=== PATIENT | male | born 1955 | race Caucasian/White ===

== ENCOUNTER 2018-12-15 08:59 | Outpatient (CLI) | payer BC ==
--- NOTE | 2018-12-15 12:58 | CT ---
CT OF CHEST AND ABDOMEN AND PELVIS PERFORMED WITH INTRAVENOUS CONTRAST ENHANCEMENT: HISTORY: Prostate cancer. Rising PSA after radical prostatectomy. Restaging. COMPARISON: Examination done at [facility] dated 08/22/2014 which is the most recent exam available for comparison. The previous examination was of the abdomen and pelvis. No previous chest CT. FINDINGS: There is an approximately 6 mm left upper lobe pulmonary nodule and a 2nd left upper lobe nodule vince uring 4 mm. A third nodule is seen in the right upper lobe measuring 5 mm. A larger nodule was seen on axial image 31 within the right upper lobe abutting the major fissure. It measures 7-8 mm in siz e. On axial 41, there is a left lower lobe pulmonary nodule measuring 4 mm and on axial image 23 wit hin the superior segment of the right lower lobe is a 7 mm nodule. There is no significant mediastinal, hilar, or axillary lymphadenopathy noted. Coronary artery calci fications are seen. The liver shows no focal abnormalities. The spleen and pancreas regions are unremarkable. The gallb ladder has been removed. Right and left adrenal glands are normal in size. Bilateral nonobstructing renal calculi are noted. There is no significant periaortic or mesenteric adenopathy. CT OF PELVIS PERFORMED WITH CONTRAST ENHANCEMENT: Post prostatectomy changes are seen. I do not appreciate any significant pelvic lymphadenopathy or m ass. Review of osseous structures shows arthritic changes of the spine. No lytic or blastic bony changes. IMPRESSION: 1. Bilateral pulmonary nodules. Given the rising PSA, this would be concerning for metastatic disea se . None of these appear calcified. 2. No evidence of any pelvic lymphadenopathy or mass. Postoperative prostatectomy changes are prese nt. 3. Bilateral nonobstructing renal calculi. 4. Postcholecystectomy change. POS: OFF
--- NOTE | 2018-12-15 14:26 | NM ---
WHOLE BODY BONE SCAN: HISTORY: Malignant neoplasm of prostate, rising PSA RADIOPHARMACEUTICAL: 32 mCi technetium 99m-MDP injected intravenously COMPARISON: None CORRELATION: CT chest, abdomen and pelvis dated 12/15/2018 FINDINGS: There is scattered degenerative activity in the appendicular skeleton. No other abnormal areas of tracer localization are seen in the skeleton to suggest metastatic disease . Tracer excretion through the kidneys is within normal limits. IMPRESSION: No scintigraphic evidence of osseous metastatic disease.
[2018-12-15] MEDS ORDERED: Iopamidol 370 76% 100 ML VIAL ONE (16:27)
== END 2018-12-15 09:00 | disposition home or self-care (01) ==
LOC: CT 08:59
PROVIDERS: ATTEND Radiology Radiation Oncology
DX: C61 Malignant neoplasm of prostate (principal); R91.8 Other nonspecific abnormal finding of lung field; N20.0 Calculus of kidney; Z90.49 Acquired absence of other specified parts of digestive tract
CPT/HCPCS: 71260; 74177; 78306; 82565; A9503; Q9967

== ENCOUNTER 2019-04-17 07:34 | Outpatient (CLI) | payer BC, OTHER ==
--- NOTE | 2019-04-17 10:15 | CT ---
CT CHEST WITH INTRAVENOUS CONTRAST: HISTORY: Followup of pulmonary nodules. COMPARISON: 12/15/2018 FINDINGS: A 3 to 4 mm left upper lobe pulmonary nodule, axial image 13, is stable. A right upper lobe pulmonary nodule, axial image 20, is not as well defined as on the prior examination and has more haziness teresa rounding the nodule but the nodule itself is actually slightly smaller in appearance, difficult to me asure. The perinodular changes are more prominent. The superior segment left lower lobe pulmonary nodule is also a less well defined nodule on today's s tudy. On the axial images a true nodule is very difficult to visualize. It does appear overall decrea sed in size and probably measures in the 4 mm range, as compared to 7 mm on the prior exam. An approx imately 7 mm nodule in the right mid lung field is fairly stable in size but, once again, it is not a s circumscribed a nodule. The borders are slightly more ill defined than on the prior study. There ar e no new nodules identified. A left sided pulmonary nodule seen on axial image 28 is the only nodule that shows some questionable minimal increase in size, measuring in the 6 mm range in short axis dime nsion as compared to 5 mm on the prior study. It is also slightly more prominent in appearance as see n on the coronal imaging. This actually could represent an intrafissural node. No significant mediastinal or hilar adenopathy. There are some coronary calcifications. The liver shows fatty change. The gallbladder has been removed. IMPRESSION: 1. Persistent pulmonary nodules. Some of these nodules are less well defined. The margins are not as circumscribed as on the prior study, specifically some of the right sided nodules. This may indicate some type of response to treatment. I do not see any new nodules. The only questionable nodule that m ay have increased in size is a left sided nodule, which is probably an intrafissural node along the m ajor fissure. 2. Fatty change of the liver. POS: TPC
== END 2019-04-17 07:35 | disposition home or self-care (01) ==
LOC: SCSCT 07:34
PROVIDERS: ATTEND Internal Medicine Hematology & Oncology
DX: C61 Malignant neoplasm of prostate (principal); R91.1 Solitary pulmonary nodule; R91.8 Other nonspecific abnormal finding of lung field; K76.0 Fatty (change of) liver, not elsewhere classified
CPT/HCPCS: 71260; 82565

== ENCOUNTER 2019-07-19 18:00 | Outpatient (CLI) | payer BC, OTHER | END 2019-07-19 18:01 | disposition home or self-care (01) | LOC: SLEEPLAB 18:00 | PROVIDERS: ATTEND Internal Medicine | DX: G47.33 Obstructive sleep apnea (adult) (pediatric) (principal); I10 Essential (primary) hypertension; E11.9 Type 2 diabetes mellitus without complications; R06.83 Snoring | CPT/HCPCS: 95806 ==

== ENCOUNTER 2019-08-31 19:30 | Outpatient (CLI) | payer BC, OTHER | END 2019-08-31 19:31 | disposition home or self-care (01) | LOC: SLEEPLAB 19:30 | PROVIDERS: ATTEND Internal Medicine | DX: G47.33 Obstructive sleep apnea (adult) (pediatric) (principal); R06.83 Snoring; I10 Essential (primary) hypertension; E11.9 Type 2 diabetes mellitus without complications | CPT/HCPCS: 95811 ==

== ENCOUNTER 2019-10-10 10:05 | Outpatient (CLI) | payer BC, OTHER ==
--- NOTE | 2019-10-10 14:26 | CT ---
CT THORAX WITH CONTRAST: DATE: 10/10/2019 HISTORY: 64-year-old male follow-up pulmonary nodules COMPARISON: 12/15/2018 and 04/17/2019 FINDINGS: Tiny 3 mm noncalcified pulmonary nodule at anterolateral apical segment of left upper lobe, abutting anterior pleural surface, is essentially unchanged (axial image 12 of 65, series 3; coronal image 87 of 160 series 602; sagittal image 137 of 198 series 603). The previously described 7 mm nodule in the "right midlung field" located at the lateral posterior as pect of the right middle lobe, just superior to the major fissure, has decreased in size, currently measuring 4 mm (axial image 32 of 65, series 3; coronal image 74 of 160 series 602; sagittal image 43 of 198 series 603). An array of noncalcified tiny nodular densities near the right lateral costophrenic angle, very close to the right hemidiaphragm, at anterolateral base of right lower lobe, is unchanged, and probably represents scar tissue or old granulomatous disease (axial images 38 and 39 of 65 series 3; coronal i mages 64 through 70 of 160 series 602; sagittal images 43 through 45 of 198 series 603). A well-circumscribed round 5 mm pulmonary nodule at the lateral aspect of right upper lobe on 12/16/19 19, became more ill-defined on 04/17/2019, and is currently no longer visible. Again noted is the benign intrapulmonary lymph node along the left major fissure at left mid lung zon e (axial image 27 of 65 series 3; coronal image 103 of 160 series 602; sagittal image 147 of 198 series 603) is unchanged. No mediastinal or hilar lymphadenopathy. No thoracic aortic aneurysm. Atherosclerotic calcification of LAD. No cardiomegaly or pericardial effusion. No pleural effusion or pneumothorax. Trachea and major bronchi are patent and clear. Again noted is bilateral breast tissue. Several tiny calculi at bilateral renal upper poles. IMPRESSION: 1) some of the pulmonary nodules have decreased in size or resolved. 2) the others are unchanged. 3) bilateral gynecomastia 4) coronary atherosclerosis due to calcified coronary lesion. 5) bilateral nephrolithiasis
== END 2019-10-10 10:06 | disposition home or self-care (01) ==
LOC: SCSCT 10:05
PROVIDERS: ATTEND Internal Medicine Hematology & Oncology
DX: C61 Malignant neoplasm of prostate (principal); R91.1 Solitary pulmonary nodule; N62 Hypertrophy of breast; I25.10 Atherosclerotic heart disease of native coronary artery without angina pectoris; N20.0 Calculus of kidney
CPT/HCPCS: 71260; 82565

== ENCOUNTER 2019-12-27 10:09 | Outpatient (CLI) | payer BC, OTHER ==
--- NOTE | 2019-12-27 11:00 | ULT ---
Renal ultrasound: 12/27/2019 COMPARISON: None available HISTORY: Proteinuria TECHNIQUE: Multiplanar grayscale sonographic imaging of the kidneys and urinary bladder obtained. FINDINGS: The right kidney measures 11.3 x 5.7 x 5.2 cm and demonstrates no hydronephrosis, discrete stone, or mass lesion. The left kidney measures 11.8 x 6.2 x 6.0 cm. Multiple echogenic foci are noted within the left kidne y suggesting numerous left renal calculi, measuring up to approximately 1.0 cm. There is hydronephrosis on the left which is mild/moderate in severity, and is seen on prevoid and postvoid im aging. The urinary bladder prevoid volume is approximately 21 cc and postvoid urinary bladder volume is approximately 2 cc. Linear increased echogenicity is seen within the urinary bladder which may be explained by "device in bladder to aid in control" per the performing collections attorney. IMPRESSION: Hydronephrosis within the left kidney on pre and post void imaging. Left-sided renal ston e disease. CT urogram would be beneficial for full assessment.
== END 2019-12-27 10:10 | disposition home or self-care (01) ==
LOC: SCSULT 10:09
PROVIDERS: ATTEND Internal Medicine
DX: N28.9 Disorder of kidney and ureter, unspecified (principal); R80.9 Proteinuria, unspecified; N13.30 Unspecified hydronephrosis; N20.0 Calculus of kidney
CPT/HCPCS: 76770

== ENCOUNTER 2020-01-02 13:32 | Outpatient (CLI) | payer BC, OTHER ==
--- NOTE | 2020-01-02 15:52 | CT ---
CT Stone Protocol 01/02/2020 12:00 AM HISTORY: Renal calculi and hydronephrosis. Left hydronephrosis was seen on a recent renal sonogram on 0 COMPARISON: CT abdomen and pelvis on 12/15/2018 and renal ultrasound on 12/27/2019 Technique: Multiple contiguous axial CT images are obtained through the abdomen and pelvis without IV contrast. Coronal reformats are provided. FINDINGS: This examination is limited for the evaluation of solid organs and vascular structures due to the lac k of intravenous contrast. Lower Chest: Stable slightly irregular pulmonary nodules are again seen at the lateral aspect right l ower lobe. Left lung base is clear Abdomen: Liver: Grossly normal non-enhanced CT appearance. Gallbladder: Surgically absent. Pancreas: Grossly normal nonenhanced CT appearance. Spleen: Grossly normal nonenhanced CT appearance. Adrenals: Grossly normal nonenhanced CT appearance. Kidneys: Nonobstructing bilateral renal calculi are present. Moderate left hydronephrosis is seen. Ureters: Moderate left hydroureter is present with a calculus seen at the left UVJ measuring 4 mm.. Pelvis: Urinary bladder: Partially distended. There is eccentric thickening right lateral wall of the urinary bladder with suggestion of irregular soft tissue density in the right lateral aspect of urinary bladder with associated calcification. In the expected location of the prostate gland which is been s urgically removed, there is exuberant eccentric circumferential calcification which does extend into the base of the urinary bladder. Prior study in 2019 demonstrated hypodense fluid in this region with minimal circumferential calcifications. Findings may be secondary to prior postoperative changes. There is a prosthetic urethral sphincter at the base of the penis. Lymph Nodes: No enlarged lymph nodes. Bowel: Normal caliber. Appendix: The appendix is normal in caliber. Peritoneum/Retroperitoneum: No free fluid, fluid collection, or lymphadenopathy seen in the abdomen o r pelvis. There is stable mild linear stranding seen in a presacral location which may be related to mild scarring. Vessels: Vascular calcifications are again seen in the abdominal aorta and iliac arteries.. Abdominal Wall: Small fat-containing umbilical hernia is present. Bones: Degenerative changes are seen in the spine. No suspicious lytic or sclerotic osseous lesions a re identified. IMPRESSION: 1. Partially obstructing left UVJ calculus measuring 4 mm with resultant moderate left hydronephrosis and hydroureter. 2. Nonobstructing bilateral renal calculi. 3. Evidence of prior prostatectomy. In the region of the prostate bed and extending to the base of th e penis are exuberant circumferential calcifications which appear to extend into the base of the urinary bladder. Findings may be secondary to postoperative changes. 4. Eccentric thickening of the right lateral wall of the urinary bladder with subtle low-attenuation area in the right aspect of the urinary bladder with associated calcification. Neoplastic process in this region cannot be excluded. Direct visualization is recommended. 5. Stable slightly irregular pulmonary nodules right lateral lung base
== END 2020-01-02 13:33 | disposition home or self-care (01) ==
LOC: SCSCT 13:32
PROVIDERS: ATTEND Urology
DX: N13.2 Hydronephrosis with renal and ureteral calculous obstruction (principal); N13.4 Hydroureter; N32.89 Other specified disorders of bladder; R91.8 Other nonspecific abnormal finding of lung field; Z90.79 Acquired absence of other genital organ(s)
CPT/HCPCS: 74176

== ENCOUNTER 2020-01-18 07:44 | Day surgery (SDC) | payer BC, OTHER ==
[2020-01-17 10:08] VITALS: BMI 33.2
[2020-01-18] MEDS ORDERED: Levofloxacin 500 mg/D5W 100 ml Premix Bag ONE (08:26)
[2020-01-18] MEDS ORDERED: Iothalamate Meglumine 60% 50 ML VIAL FS ONE (10:13)
[2020-01-18] MEDS ORDERED: PROPOFOL 200 MG/20 ML VIAL ONE (11:37)
[2020-01-18] MEDS ORDERED: Meperidine HCl/PF 25 MG/ML VIAL ONE (12:59)
--- NOTE | 2020-01-18 13:01 | RAD ---
EXAM: XR IVP Retrograde PROVIDED CLINICAL HISTORY: Ureteral stent placement. Bilateral renal calculi and left hydronephrosis. COMPARISON: None FINDINGS/IMPRESSION: Only a single AP fluoroscopic image of the abdomen is submitted. There is faint opacification of the urinary bladder. Renal shadows are not well visualized and are partially obscured on this exam. Correlation with intraoperative findings is recommended.
[2020-01-18] MEDS ORDERED: Oxybutynin 5 MG TAB ONE (13:13)
[2020-01-18] MEDS ORDERED: Ketorolac Tromethamine 30 MG/ML VIAL ONE (13:13)
--- NOTE | 2020-01-18 13:43 | OP ---
DATE OF PROCEDURE: 01/18/2020 PREOPERATIVE DIAGNOSES: Left ureteral stone, bladder stones. POSTOPERATIVE DIAGNOSES: Left ureteral stone, bladder stones, left ureteral stricture. PROCEDURES PERFORMED: Cystoscopy with laser cystolitholapaxy of large bladder stones. COMPLICATIONS: Unable to identify the left ureteral orifice as it appears to be involved with inflammatory/dystrophic calcification changes of the bladder neck. ANESTHESIA: General. SPECIMEN: None. BLOOD LOSS: Minimal. DESCRIPTION OF PROCEDURE: After informed consent, the patient was taken to the operating room, transferred to the table on his own power. Anesthesia was established. Time-out was performed showing correct patient, site, and procedure. Preoperative antibiotics were administered. He was prepped and draped in the lithotomy position. I began by locking his artificial sphincter in the open position. A 17-Khmer rigid cystoscope was advanced through the urethra noting no evidence of erosion of the sphincter and then guided into the bladder neck, which is lined circumferentially with dystrophic calcifications. I was able to negotiate into the bladder, which was systematically examined noting no bladder tumors. He does have changes consistent with radiation therapy. I used the 365 micron laser fiber to trim away all the stone from the bladder neck. This took about 45 minutes total time. All of these were irrigated out of the bladder, which was then free of stone. He does still have dystrophic calcifications lining the disrupted bladder neck and the true bladder neck of the bladder. This tissue is inflamed. I was able to identify the right ureteral orifice and passed a wire in this to confirm that it was indeed the right side. Despite numerous attempts using different techniques, I was unable to identify the left ureteral orifice, noting that where it should be located is covered with inflammatory tissue with dystrophic calcifications. I do not think that it would be reyes to insert a large resectoscope to resect over the UO given his artificial sphincter and so I eventually abandoned that portion of the procedure. He was awoken from anesthesia and transferred back to his hospital bed and taken to PACU in stable condition. I spoke with his afterwards and explained that he will need a left nephrostomy tube next week with antegrade ureteroscopy in the following week. Job ID: [id number]
[2020-01-18] MEDS ORDERED: HYDROcodone/Acetaminophen 5/325 mg Tablet ONE (14:11)
[2020-01-18] MEDS ORDERED: Sodium Chloride 0.9% 10 ML ONE (14:47)
[2020-01-18] MEDS ORDERED: Ondansetron PF 4 MG/2 ML Vial ONE (14:47)
== END 2020-01-18 16:25 | disposition home or self-care (01) ==
LOC: SDC 07:44
PROVIDERS: ATTEND Urology
PROC: 0TCB8ZZ Extirpation of Matter from Bladder, Via Natural or Artificial Opening Endoscopic (ICD-10-PCS; principal; 2020-01-18)
DX: N21.0 Calculus in bladder (principal); N20.1 Calculus of ureter; E11.9 Type 2 diabetes mellitus without complications; E78.5 Hyperlipidemia, unspecified; E78.00 Pure hypercholesterolemia, unspecified; I10 Essential (primary) hypertension; D64.9 Anemia, unspecified; G47.30 Sleep apnea, unspecified; N28.9 Disorder of kidney and ureter, unspecified; Z79.899 Other long term (current) drug therapy; Z88.0 Allergy status to penicillin; Z88.2 Allergy status to sulfonamides; Z88.5 Allergy status to narcotic agent; Z85.46 Personal history of malignant neoplasm of prostate; Z79.4 Long term (current) use of insulin
CPT/HCPCS: 74420; J1885; J1956; J2175; J2405

== ENCOUNTER 2020-01-19 14:35 | Inpatient (IN) | payer BC, OTHER, MEDICARE ==
[2020-01-19 16:24] LABS: Hemoglobin 9.3 g/dL (14.0-18.0); Mean Corpuscular HGB CONC 34.4 g/dL (32.0-36.0); Mean Corpuscular Hemoglobin 34.8 pg (27.0-31.0); Platelet Count 144 thou/uL (130-400); RBC Distribution Width 14.2 % (11.5-14.5); Red Blood Cell (RBC) Count 2.67 mill/uL (4.70-6.10); White Blood Cell (WBC) Count 8.1 thou/uL (4.8-10.8)
[2020-01-19 16:28] LABS: Bilirubin Negative (Negative); Blood, Urine 3+ (Negative); Clarity Turbid (Clear); Glucose, Urine (Dipstick) Normal (Negative); Ketone, Urine Negative (Negative); Leukocyte 500 Leu/uL (Negative); Nitrite Negative (Negative); Protein, Urine (Dipstick) 200 mg/dL (Neg-Trace); RBC/HPF Greater than 50 HPF (0-3); Specific Gravity, Urine 1.021 (1.002-1.036); Squamous Epithelial 0-3 HPF (0-3); WBC/HPF Greater than 50 HPF (0-3); pH, Urine 7.5 (5.0-9.0)
[2020-01-19 16:32] LABS: Bacteria/HPF Rare-Few HPF (None Seen); Transitional Epithelial 0-3 HPF (None Seen)
[2020-01-19 16:42] LABS: ALT (SGPT) 47 U/L (8-55); AST (SGOT) 60 U/L (5-34); Albumin 3.5 g/dL (3.4-4.8); Alkaline Phosphatase 80 U/L (40-110); Anion Gap 16 mmol/L (10-20); BUN (Urea Nitrogen) 31 mg/dL (8.4-25.7); Bilirubin, Total 0.9 mg/dL (0.2-1.2); Calc. Creatinine Clearance 0 mL/min (70-130); Calcium 8.7 mg/dL (7.8-10.44); Carbon Dioxide 22 mmol/L (23-31); Chloride 103 mmol/L (98-107); Estimated GFR-MDRD 25; Globulin 2.6 g/dL (2.4-3.5); Glucose 116 mg/dL (80-115); Potassium 4.3 mmol/L (3.5-5.1); Protein, Total 6.1 g/dL (5.8-8.1); Sodium 137 mmol/L (136-145)
[2020-01-19 16:46] LABS: Band 26 % (5-11); Eosinophils 1 % (0-10); Lymphocytes 2 % (21-51); MDiff Complete? YES; Macrocytosis SLIGHT = 6-15 cells (100X) (0-5/hpf); Metamyelocyte 2 % (0-0); Neutrophil 69 % (42-75); Ovalocytes SLIGHT = 2-5 cells (100X) (0-1/hpf); Platelet Morphology Comment Appears Adequate; Polychromasia SLIGHT = 2-3 cells (100X) (0-2/hpf); Vacuoles SLIGHT
--- NOTE | 2020-01-19 16:46 | CT ---
CT Abdomen Pelvis WO Con 01/19/2020 4:22 PM HISTORY: Follow-up evaluation postprocedure. COMPARISON: 01/15/2020 Technique: Multiple contiguous axial CT images are obtained through the abdomen and pelvis without IV contrast. Coronal reformats are provided. FINDINGS: This examination is limited for the evaluation of solid organs and vascular structures due to the lac k of intravenous contrast. Lower Chest: Slightly irregular subcentimeter pulmonary nodules are again seen in the right lung base . Left lung base clear. Abdomen: Liver: Grossly normal non-enhanced CT appearance. Gallbladder: Surgically absent. Pancreas: Grossly normal nonenhanced CT appearance. Spleen: Grossly normal nonenhanced CT appearance. Adrenals: Grossly normal nonenhanced CT appearance. Kidneys/ureters: Nonobstructing bilateral renal calculi are again seen. Again noted is left hydroneph rosis and hydroureter with a partially obstructing 4 mm calculus at the left UVJ. There has been interval development of right perinephric and periureteral inflammatory stranding. There is no right hydroureter or hydronephrosis, and no ureteral calculus is visualized. Exact etiology for this finding is uncertain. Findings could be related to infection in the correct clinical scenario. Pelvis: Urinary bladder: Urinary bladder is decompressed on this examination. Gas is present in the urinary b ladder which is likely related to recent postoperative procedure and cystoscopy. The dystrophic ringlike calcifications seen at the base of the urinary bladder and in the region of the prostate bed are again seen. The urethral sphincter prosthesis is again seen. Reproductive Organs: No pelvic masses. Lymph Nodes: No enlarged lymph nodes. Bowel: Normal caliber. Appendix: The appendix is normal in caliber. Peritoneum/Retroperitoneum: Again noted is mild stranding in presacral location which may related to mild scarring. No free fluid, free intraperitoneal gas, or fluid collection is seen in the abdomen or pelvis. Vessels: Vascular calcifications.. Abdominal Wall: Small fat-containing umbilical hernia. Bones: Degenerative changes in the spine. IMPRESSION: 1. Interval development of right perinephric and periureteral inflammatory stranding of uncertain vianey ology. However, findings may be related to ascending infection or possibly secondary to recent procedure. There is no hydronephrosis, and no ureteral calculus is seen. 2. Persistent partially obstructing left UVJ calculus measuring 4 mm. Mild left hydronephrosis is pre sent. 3. Nonobstructing bilateral renal calculi. 4. Additional findings as above which are stable compared to prior study aside from interval developm ent of gas in urinary bladder which is thought to be related to recent procedure. 5. Above findings discussed with Dr. Sheffield in the emergency department on 01/19/2020 at 1641 hour s.
[2020-01-19] MEDS ORDERED: Vancomycin 1 GM/200 ML BAG ONE (17:52)
[2020-01-19] MEDS ORDERED: Cefepime 2 GM VIAL ONE (17:52)
[2020-01-19] MEDS ORDERED: HYDROcodone/Acetaminophen 10/325 mg Tablet ONE (18:22)
[2020-01-19] MEDS ORDERED: Sodium Chloride 0.9% 1,000 ML IV SCH (20:00)
[2020-01-19] MEDS ORDERED: hydrALAZINE 20 MG/ML VIAL SLOW IVP PRN (20:11)
[2020-01-19] MEDS ORDERED: Acetaminophen 500 MG TAB PO PRN (20:11)
[2020-01-19] MEDS ORDERED: Dextrose 5% in Water 1,000 ML IV PRN (20:11)
[2020-01-19] MEDS ORDERED: Ketorolac Tromethamine 30 MG/ML VIAL IVP PRN (20:11)
[2020-01-19] MEDS ORDERED: Dextrose 50% Abboject 50 ML SYRINGE SLOW IVP PRN (20:11)
[2020-01-19] MEDS ORDERED: Ondansetron ODT 4 MG TAB PO PRN (20:11)
[2020-01-19] MEDS ORDERED: HumaLOG 300 UNITS/3 ML VIAL SC PRN ×2 (20:11)
[2020-01-19] MEDS: Sodium Chloride 0.9% 1,000 ML IV SCH (21:15)
[2020-01-19] MEDS: Famotidine 20 MG TAB PO SCH (21:15)
[2020-01-19 22:33] VITALS: BMI 33.2
--- NOTE | 2020-01-20 00:39 | HP ---
PRIMARY CARE PROVIDER: Dr. Forest Osborne. CHIEF COMPLAINT: Right flank pain and chills. HISTORY OF PRESENT ILLNESS: This is a 65-year-old male, who presented to [facility] Emergency Department complaining of right-sided flank pain, chills, general malaise, and decreased urine output in the last 24 hours. The patient's history is significant for recent laser lithotripsy attempt on the left ureter due to a distal left UPJ stone. The patient states there was difficulty removing the stone with laser technique due to swelling, inflammatory changes, and obstruction. The patient states that the right side was not cannulated to his knowledge. The patient states he had chills postoperatively and felt febrile, but eventually was released home late 01/18/2020. The patient denied any nausea or vomiting, blood in his urine or stool. The patient denied loss of consciousness, unilateral weakness, or documented fever. In the emergency room, the patient underwent general evaluation including CT imaging of the abdomen and pelvis showing evidence of inflammatory changes of the right ureter and perinephric stranding. The patient was diagnosed with pyelonephritis, receiving vancomycin and cefepime. The patient also received 1 L of intravenous normal saline. PAST MEDICAL HISTORY: 1. Ureteral/renal lithiasis, status post laser lithotripsy attempt of the left ureter, 01/18/2020. 2. Diabetes mellitus type 2. 3. Prostate carcinoma. 4. Hyperlipidemia. 5. Hypertension. PAST SURGICAL HISTORY: 1. Status post artificial sphincter placement of the urethra. 2. Status post prostatectomy. CURRENT MEDICATIONS: 1. Ropinirole 0.25 mg 1 to 2 tabs p.o. daily p.r.n. 2. Trulicity 1.5 mg intramuscularly weekly. 3. Potassium chloride 10 mEq 1 tab p.o. daily. 4. Losartan 50 mg p.o. daily. 5. Oxybutynin chloride 10 mg p.o. daily. 6. Fluconazole 150 mg p.o. t.i.d. 7. Crestor 20 mg p.o. daily. 8. Bisoprolol fumarate 10 mg p.o. daily. 9. Aspirin 81 mg p.o. daily. 10. Amlodipine 20 mg p.o. daily. ALLERGIES: DILAUDID, PENICILLIN, SULFA, AND TRAMADOL. FAMILY HISTORY: No inheritable diseases per patient report. SOCIAL HISTORY: , accompanied by his in the emergency room. No current alcohol, tobacco, or illicit drug use. Retired. REVIEW OF SYSTEMS: CONSTITUTIONAL: Negative for weight loss or gain, ability to conduct usual activities. SKIN: Negative for rash, itching. EYES: Negative for double vision, pain. ENT/MOUTH: Negative for nose bleeding, neck stiffness, pain, tenderness. CARDIOVASCULAR: Negative for palpitations, dyspnea on exertion, orthopnea. RESPIRATORY: Negative for shortness of breath, wheezing, cough, hemoptysis, fever or night sweats. GASTROINTESTINAL: Negative for poor appetite, abdominal pain, heartburn, nausea, vomiting, constipation, or diarrhea. GENITOURINARY: Negative for urgency, frequency, dysuria, nocturia. MUSCULOSKELETAL: Negative for pain, swelling. NEUROLOGIC/PSYCHIATRIC: Negative for anxiety, depression. ALLERGY/IMMUNOLOGIC: Negative for skin rash, bleeding tendency. Otherwise, negative except as stated per HPI. PHYSICAL EXAMINATION: VITAL SIGNS: On admission, blood pressure 140/59, pulse 92, respiratory rate 19, temperature 99.2 degrees Fahrenheit, O2 saturation 98% on room air. GENERAL APPEARANCE: This is a 65-year-old male, alert and oriented x3, pleasant, responsive, in no acute distress. HEENT: Pupils are equal, round, reactive to light and accommodation. Extraocular muscles are intact. No scleral icterus. No conjunctival injection. Nares patent. OP is clear. Oral mucosa dry. NECK: Supple. No cervical adenopathy. No thyromegaly. No carotid bruits. No JVD appreciated. Cervical spine with full active and passive range of motion. No meningeal signs noted. CHEST: Lungs are clear to auscultation bilaterally. CARDIOVASCULAR: S1 and S2 without noted murmur, rub, or gallop. ABDOMEN: Protuberant, obese, nontender with bowel sounds positive in all 4 quadrants. No palpable mass. No rebound or guarding noted. Mild right CVA tenderness noted. EXTREMITIES: Warm and dry with fair turgor. No clubbing, cyanosis, or asymmetric edema appreciated. Pulses palpable distally at the dorsalis pedis, posterior tibial, and popliteal arteries bilaterally. Capillary refill less than 2 seconds. NEUROLOGIC: Cranial nerves 2 through 12 are grossly intact. No focal or lateralizing signs appreciated. PERTINENT LABORATORY AND X-RAY FINDINGS: Sodium 137, potassium 4.3, chloride 103, CO2 of 22, anion gap 16, BUN 31, creatinine 2.61, estimated GFR 25, glucose 116, calcium 8.7, AST 60, ALT of 47, alkaline phosphatase 80. CBC showed a white blood cell count of 8.1, hemoglobin 9.3, hematocrit 27, MCV 101, platelet count 144 with 69% neutrophils and 26% bandemia. Urinalysis showed a turbid specimen with positive protein, blood, leukocyte esterase positive with greater than 50 RBCs and WBCs per high-powered field. Urine culture dated 01/16/2020 showed no growth at [address] of the abdomen and pelvis dated 01/19/2020 showed perinephric and periureteral inflammatory stranding. No hydronephrosis or ureteral calculus of the right ureteral system. Partially obstructing left UVJ calculus measuring 4 mm with mild hydronephrosis. Nonobstructive bilateral renal calculi noted. ASSESSMENT AND PLAN: 1. Right pyelonephritis. The patient will be admitted to the surgical floor. Continue vancomycin 1 g IV q.24 hours with additional cefepime 1 g IV q.12 hours. Urine and blood cultures pending. Continue intravenous normal saline at 100 mL/hour. Await final urine culture results. Pain control with [place]. 2. Acute kidney injury on chronic kidney disease stage 2 to 3. Continue IV fluids as outlined previously. Avoid nephrotoxic agents and limit contrast exposure. Repeat creatinine in the a.m. and monitor urine output. 3. Left ureterolithiasis, status post laser lithotripsy. Continue supportive management as outlined previously. Consult Urology Service for any further recommendations. 4. Diabetes mellitus type 2. Insulin sliding scale for reflexive coverage. Serial Accu-Cheks before meals and at bedtime. ADA diet. 5. Hypertension. Resume home blood pressure regimen and monitor blood pressure trend. 6. Prophylaxis. SCDs while in bed. Pepcid 20 mg p.o. b.i.d. 7. Code status is full. Surrogate medical decision maker is the patient's spouse. Job ID: [id number]
[2020-01-20] MEDS: HYDROcodone/Acetaminophen 10/325 mg Tablet PO PRN ×5 (02:11→19:04)
[2020-01-20 06:18] LABS: Band 10 % (5-11); Eosinophils 1 % (0-10); Hemoglobin 8.3 g/dL (14.0-18.0); Lymphocytes 1 % (21-51); MDiff Complete? YES; Macrocytosis SLIGHT = 6-15 cells (100X) (0-5/hpf); Mean Corpuscular HGB CONC 32.8 g/dL (32.0-36.0); Mean Corpuscular Hemoglobin 33.6 pg (27.0-31.0); Mean Platelet Volume 6.7 fL (7.4-10.4); Metamyelocyte 1 % (0-0); Monocytes 5 % (0-10); Neutrophil 82 % (42-75); Platelet Count 129 thou/uL (130-400); Platelet Morphology Comment Appears Decreased; RBC Distribution Width 14.1 % (11.5-14.5); Red Blood Cell (RBC) Count 2.48 mill/uL (4.70-6.10); White Blood Cell (WBC) Count 6.4 thou/uL (4.8-10.8)
[2020-01-20] MEDS: Cefepime 1 GM in Sodium Chloride 0.9% 100 ML IVPB SCH ×2 (06:25→18:32)
[2020-01-20] MEDS: Sodium Chloride 0.9% 1,000 ML IV SCH ×3 (06:25→18:32)
[2020-01-20 06:35] LABS: Anion Gap 14 mmol/L (10-20); BUN (Urea Nitrogen) 28 mg/dL (8.4-25.7); Calc. Creatinine Clearance 47 mL/min (70-130); Calcium 8.3 mg/dL (7.8-10.44); Carbon Dioxide 20 mmol/L (23-31); Chloride 108 mmol/L (98-107); Estimated GFR-MDRD 30; Glucose 101 mg/dL (80-115); Potassium 4.2 mmol/L (3.5-5.1); Sodium 138 mmol/L (136-145)
[2020-01-20] MEDS: Vancomycin 1 GM in Premix Bag 1 BAG IVPB SCH (08:59)
--- NOTE | 2020-01-20 12:14 | PDOC.HOSPP ---
- Subjective Encounter Date: 01/20/20 Encounter Time: 12:10 Subjective: f/u for R pyelonephritis receiving Cefepime/Vancomycin. Feels ok overall and no fever documented. - Objective Vital Signs & Weight: Vital Signs (12 hours) Temp Pulse Resp BP BP Pulse Ox 01/20/20 07:56 97.9 F 80 20 149/80 H 96 01/20/20 04:00 98.3 F 79 20 123/70 94 L Weight Weight 225 lb Result Diagrams: 01/20/20 06:00 01/20/20 06:00 Additional Labs: Accuchecks 01/20/20 01/20/20 01/19/20 11:56 06:04 21:08 POC Glucose 101 H 98 106 H Laboratory Tests 01/19/20 01/19/20 01/20/20 16:02 16:02 06:00 Hgb 9.3 L MCV 101.0 H Neutrophils % (Manual) 69 82 H Band Neuts % (Manual) 26 H 10 BUN 31 H Creatinine 2.61 H Hospitalist ROS - Medication Medications: Active Medications Generic Name Dose Route Start Last Admin Trade Name Freq PRN Reason Stop Dose Admin Hydrocodone Bitart/Acetaminophen 1 tab 01/19/20 18:11 01/20/20 11:17 Hydrocodone/Acetaminophen 10/325 Mg Tablet PO 1 tab Q4H PRN Administration Moderate to Severe Pain (6-10) Famotidine 20 mg 01/19/20 21:00 01/19/20 21:15 Famotidine 20 Mg Tab PO 20 mg QPM ANGEL Administration Cefepime HCl 1 gm/ Sodium 100 mls @ 200 mls/hr 01/20/20 06:00 01/20/20 06:25 Chloride IVPB 100 mls 0600,1800 ANGEL Administration Sodium Chloride 1,000 mls @ 100 mls/hr 01/19/20 20:11 01/20/20 07:24 Normal Saline 0.9% IV Not Given .Q10H ANGEL Vancomycin HCl 1 gm/ Device 200 mls @ 200 mls/hr 01/20/20 09:00 01/20/20 08:59 IVPB 200 mls DAILY ANGEL Administration - Exam General Appearance: NAD, awake alert Eye: PERRL, anicteric sclera ENT: normocephalic atraumatic, no oropharyngeal lesions Neck: supple, symmetric, no JVD, no thyromegaly, no lymphadenopathy Heart: RRR, no gallops, no rubs, normal peripheral pulses Heart - other findings: S1, S2 Respiratory: CTAB, no wheezes, no rales, no ronchi, normal chest expansion Gastrointestinal: soft, non-tender, non-distended, normal bowel sounds, no palpable masses Gastrointestinal - other findings: Mild R CVA TTP Extremities: no cyanosis, no clubbing, no edema Skin: normal turgor, no lesions Neurological: cranial nerve grossly intact, no new deficit Musculoskeletal: normal tone, normal strength, no muscle wasting Psychiatric: normal affect, A&O x 3 Hosp A/P (1) Pyelonephritis, acute Code(s): N10 - ACUTE PYELONEPHRITIS Status: Acute Plan: Improved, continue Cefepime/Vancomycin/IVF's, await final Ucx results (2) Acute kidney injury superimposed on CKD Code(s): N17.9 - ACUTE KIDNEY FAILURE, UNSPECIFIED; N18.9 - CHRONIC KIDNEY DISEASE, UNSPECIFIED Status: Acute Plan: Improved, continue IVF's, avoid nephrotoxic meds and monitor renal function (3) Ureterolithiasis Code(s): N20.1 - CALCULUS OF URETER Status: Acute Plan: Plan for Nephrostomy tube placement (4) DM II (diabetes mellitus, type II), controlled Code(s): E11.9 - TYPE 2 DIABETES MELLITUS WITHOUT COMPLICATIONS Status: Chroni c Plan: Resume home DM regimen, ISS, ADA (5) HTN (hypertension) Code(s): I10 - ESSENTIAL (PRIMARY) HYPERTENSION Status: Chronic Qualifiers: Hypertension type: essential hypertension Qualified Code(s): I10 - Essential (primary) hypertension Plan: Resume home BP regimen, serial BP monitoring - Plan continue antibiotics, social services technician, out of bed/ambulate, DVT proph w/SCDs Stable currently Continue Cefepime/Vancomycin pending final Ucx results Continue IVF's OOB/ambulate Resume home BP regimen AM lab: BMP, CBC
[2020-01-20] MEDS: Ondansetron PF 4 MG/2 ML Vial IVP PRN (15:31)
[2020-01-20] MEDS ORDERED: Dulaglutide [Trulicity] 0.75 MG/0.5 ML Pen.Injctr SC SCH ×2 (17:00→20:30)
--- NOTE | 2020-01-20 17:32 | CON ---
DATE OF CONSULTATION: 01/20/2020 REASON FOR CONSULTATION: Pyelonephritis. CHIEF COMPLAINT: Abdominal pain, fevers. HISTORY OF PRESENT ILLNESS: A 65-year-old male with a history of robotic prostatectomy by Dr. 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 He has had significant incontinence and has recently undergone artificial sphincter placement with good results. He has been followed by me most recently for a left ureteral stone, which was not passing, causing hydronephrosis, and elevation of his creatinine to about 2. He was taken Tuesday for laser of bladder/bladder neck stones with attempt at left ureteroscopy; however, I was unable to identify the left ureteral orifice. Over the weekend, he developed right-sided abdominal pain with fevers, and so I directed him to the emergency room yesterday. In the ER, CT scan showed right perinephric stranding. He was admitted for IV antibiotics for pyelonephritis. In speaking with him this morning, he reports that he feels much improved noting that his fevers seem to break overnight. He is having only mild to occasionally moderate right-sided abdominal pain at this point with no nausea or fevers. He is still urinating normally and notes that the blood has dramatically reduced after the procedure. He denies chest pains, difficulty breathing, or headaches. PAST MEDICAL HISTORY: Metastatic castration resistant prostate cancer, status post robotic prostatectomy and salvage radiotherapy, left ureteral stone, diabetes, hypertension, hyperlipidemia. SURGICAL HISTORY: Prostatectomy, artificial sphincter, bladder stones, bladder neck contracture. CURRENT MEDICATIONS: Reviewed. Pertinent urology medications include; 1. Oxybutynin 10 mg daily. 2. Xtandi. 3. He is still on Lupron. ALLERGIES: DILAUDID, PENICILLIN, SULFA, TRAMADOL. FAMILY HISTORY: Reviewed and noncontributory. 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 REVIEW OF SYSTEMS: Ten-point review of systems is negative except as mentioned in my HPI. PHYSICAL EXAMINATION: VITAL SIGNS: T-max 99.8, otherwise vitals stable. Urine output has not been recorded. GENERAL: No acute distress. Conversant. HEENT: Head, normocephalic and atraumatic. Extraocular movements are intact. NECK: Supple. Trachea midline. HEART: Regular rate and rhythm. Unlabored breathing. Symmetric chest expansion. ABDOMEN: Soft, nontender, nondistended. No significant flank tenderness. No suprapubic tenderness. Artificial sphincter in good position, cycling well. SKIN: Warm and dry. NEUROLOGIC: Alert and oriented x3. PSYCHIATRIC: Normal mood and affect. LABORATORY DATA: Reviewed. White count yesterday 8.1, 6.4 today; 82% neutrophils today. Creatinine 2.61 yesterday, 2.24 today. Urine; negative nitrite, positive leukocyte esterase. Recent urine culture from January 15 reviewed, no growth. IMAGING STUDIES: Reviewed showing right perinephric stranding with left hydronephrosis down to the level of the stone at the left UVJ, stone burden at the bladder neck has been greatly diminished after his procedure. ASSESSMENT AND PLAN: Hospital day 2, right pyelonephritis, left hydronephrosis, left ureteral stone. Continue broad-spectrum antibiotics while we await urine culture results. I have ordered left nephrostomy tube placement for his left hydronephrosis as this is causing acute kidney injury on top of his chronic kidney disease. Greater than 70 minutes were spent in direct patient care. Job ID: [id number]
[2020-01-20] MEDS: Bisoprolol Fumarate 5 MG TAB PO SCH (20:42)
[2020-01-20] MEDS: Famotidine 20 MG TAB PO SCH (20:43)
[2020-01-20] MEDS: rOPINIRole HCl 0.25 MG TAB PO SCH (20:43)
[2020-01-20] MEDS: Rosuvastatin 20 MG TAB PO SCH (20:43)
[2020-01-20] MEDS: Amlodipine 10 MG TAB PO SCH (20:44)
[2020-01-20] MEDS: Oxybutynin 5 MG TAB PO SCH (20:44)
[2020-01-20] MEDS: XTANDI 40 MG PO SCH (20:46)
[2020-01-21] MEDS: Sodium Chloride 0.9% 1,000 ML IV SCH ×3 (05:17→18:40)
[2020-01-21] MEDS: Cefepime 1 GM in Sodium Chloride 0.9% 100 ML IVPB SCH ×2 (05:18→18:40)
[2020-01-21 05:50] LABS: #Eosinphils 0.3 thou/uL (0.0-0.7); #Lymphocytes 0.5 thou/uL (1.20-3.40); #Monocytes 0.3 thou/uL (0.11-0.59); #Neutrophils 5.1 thou/uL (1.40-6.50); %Eosinophils 4.6 % (0.0-10.0); %Lymphocytes 7.3 % (21.0-51.0); %Monocytes 5.4 % (0.0-10.0); %Neutrophils 82.8 % (42.0-75.0); Hemoglobin 8.3 g/dL (14.0-18.0); Mean Corpuscular HGB CONC 34.1 g/dL (32.0-36.0); Mean Corpuscular Hemoglobin 34.4 pg (27.0-31.0); Mean Platelet Volume 7.4 fL (7.4-10.4); Platelet Count 140 thou/uL (130-400); RBC Distribution Width 14.2 % (11.5-14.5); Red Blood Cell (RBC) Count 2.42 mill/uL (4.70-6.10); White Blood Cell (WBC) Count 6.1 thou/uL (4.8-10.8)
[2020-01-21 06:13] LABS: Anion Gap 13 mmol/L (10-20); BUN (Urea Nitrogen) 24 mg/dL (8.4-25.7); Calc. Creatinine Clearance 53 mL/min (70-130); Calcium 8.7 mg/dL (7.8-10.44); Carbon Dioxide 24 mmol/L (23-31); Chloride 109 mmol/L (98-107); Estimated GFR-MDRD 33; Glucose 93 mg/dL (80-115); Potassium 4.5 mmol/L (3.5-5.1); Sodium 141 mmol/L (136-145)
--- NOTE | 2020-01-21 08:51 | PRG ---
DATE OF SERVICE: 01/21/2020 SUBJECTIVE: No acute events overnight. No fevers or nausea. Right-sided abdominal pain dramatically improved. No left-sided pain. Voiding normally. OBJECTIVE: VITAL SIGNS: Afebrile, vitals stable. Good urine output, although incompletely recorded. GENERAL: No acute distress. LUNGS: Unlabored breathing. HEART: Regular rate and rhythm. ABDOMEN: Soft, nontender, nondistended. No flank tenderness. No suprapubic tenderness. SKIN: Warm and dry. No peripheral edema. LABORATORY STUDIES: Hemoglobin 8.3, creatinine 2.02. ASSESSMENT AND PLAN: Hospital day 3, right pyelonephritis, left distal ureteral stone with left ureteral orifice stricture with left hydronephrosis, failed retrograde ureteroscopy. Radiology requested to hold his aspirin. This will be done today. He will be n.p.o. after midnight for left nephrostomy tube tomorrow. Continue broad-spectrum antibiotics while we await culture results. Job ID: [id number]
[2020-01-21] MEDS: Cholecalciferol 1,000 UNITS (25 MCG) TAB PO SCH (08:55)
[2020-01-21] MEDS: Cyanocobalamin (Vitamin B-12) 1,000 MCG TAB PO SCH (08:56)
[2020-01-21] MEDS: Loratadine 10 MG TAB PO SCH (08:56)
[2020-01-21] MEDS: Losartan 25 MG TAB PO SCH (08:56)
[2020-01-21] MEDS: Potassium Chloride 10 MEQ TAB PO SCH (08:56)
[2020-01-21] MEDS: Vancomycin 1 GM in Premix Bag 1 BAG IVPB SCH (08:57)
[2020-01-21] MEDS ORDERED: Aspirin 81 mg Enteric Coated Tablet PO SCH (09:00)
[2020-01-21] MEDS ORDERED: CRANBERRY EXTRACT 425 MG PO SCH (09:00)
[2020-01-21] MEDS ORDERED: CINNAMON BARK 500 MG PO SCH (09:00)
[2020-01-21] MEDS: Ondansetron PF 4 MG/2 ML Vial IVP PRN (10:56)
--- NOTE | 2020-01-21 14:12 | PDOC.HOSPP ---
- Subjective Encounter Date: 01/21/20 Encounter Time: 14:05 Subjective: f/u for R-sided pyelonephritis on current Cefepime/Vancomycin. Feels great today. No fever or flank pain. - Objective Vital Signs & Weight: Vital Signs (12 hours) Temp Pulse Resp BP BP Pulse Ox 01/21/20 11:00 98.7 F 79 20 138/72 92 L 01/21/20 08:54 97.6 F 76 20 145/76 H 96 Weight Weight 225 lb I&O: 01/20/20 01/21/20 01/22/20 06:59 06:59 06:59 Intake Total 2160 Balance 2160 Result Diagrams: 01/21/20 05:02 01/21/20 05:02 Additional Labs: Accuchecks 01/21/20 01/21/20 01/20/20 11:09 05:21 20:47 POC Glucose 111 H 84 119 H 01/20/20 16:24 POC Glucose 90 Microbiology 01/19/20 15:25 Urine clean catch Urine Culture - Final NO GROWTH AT 48 HOURS Laboratory Tests 01/19/20 01/19/20 01/20/20 16:02 16:02 06:00 Hgb 9.3 L MCV 101.0 H Neutrophils % (Manual) 69 82 H Band Neuts % (Manual) 26 H 10 BUN 31 H Creatinine 2.61 H Hospitalist ROS - Medication Medications: Active Medications Generic Name Dose Route Start Last Admin Trade Name Freq PRN Reason Stop Dose Admin Hydrocodone Bitart/Acetaminophen 1 tab 01/19/20 18:11 01/20/20 19:04 Hydrocodone/Acetaminophen 10/325 Mg Tablet PO 1 tab Q4H PRN Administration Moderate to Severe Pain (6-10) Amlodipine Besylate 10 mg 01/20/20 21:00 01/20/20 20:44 Amlodipine 10 Mg Tab PO 10 mg HS ANGEL Administration Bisoprolol Fumarate 10 mg 01/20/20 21:00 01/20/20 20:42 Bisoprolol Fumarate 5 Mg Tab PO 10 mg HS ANGEL Administration Cholecalciferol 2,000 units 01/21/20 09:00 01/21/20 08:55 Cholecalciferol 1,000 Units (25 Mcg) Tab PO 2,000 units DAILY ANGEL Administration Cyanocobalamin 1,000 mcg 01/21/20 09:00 01/21/20 08:56 Cyanocobalamin (Vitamin B-12) 1,000 Mcg Tab PO 1,000 mcg DAILY ANGEL Administration Famotidine 20 mg 01/19/20 21:00 01/20/20 20:43 Famotidine 20 Mg Tab PO 20 mg QPM ANGEL Administration Cefepime HCl 1 gm/ Sodium 100 mls @ 200 mls/hr 01/20/20 06:00 01/21/20 05:18 Chloride IVPB 100 mls 0600,1800 ANGEL Administration Sodium Chloride 1,000 mls @ 100 mls/hr 01/19/20 20:11 01/21/20 05:17 Normal Saline 0.9% IV 1,000 mls .Q10H ANGEL Administration Vancomycin HCl 1 gm/ Device 200 mls @ 200 mls/hr 01/20/20 09:00 01/21/20 08:57 IVPB 200 mls DAILY ANGEL Administration Loratadine 10 mg 01/21/20 09:00 01/21/20 08:56 Loratadine 10 Mg Tab PO 10 mg DAILY ANGEL Administration Losartan Potassium 50 mg 01/21/20 09:00 01/21/20 08:56 Losartan 25 Mg Tab PO 50 mg DAILY ANGEL Administration Ondansetron HCl 4 mg 01/19/20 20:11 01/21/20 10:56 Ondansetron Pf 4 Mg/2 Ml Vial IVP 4 mg Q6H PRN Administration Nausea/Vomiting Oxybutynin Chloride 10 mg 01/20/20 21:00 01/20/20 20:44 Oxybutynin 5 Mg Tab PO 10 mg HS ANGEL Administration Xtandi 40 Mg 0 each 01/20/20 21:00 01/20/20 20:46 PO 1 each 2100 ANGEL Administration Dulaglutide [ 0 each 01/20/20 20:30 01/20/20 19:06 Trulicity] 0.75 Mg/0 SC 1 each .5 Ml Pen.Injctr [email or web address] ANGEL Administration Potassium Chloride 10 meq 01/21/20 08:00 01/21/20 08:56 Potassium Chloride 10 Meq Tab PO 10 meq QAM-WM ANGEL Administration Ropinirole HCl 0.25 mg 01/20/20 21:00 01/20/20 20:43 Ropinirole Hcl 0.25 Mg Tab PO 0.25 mg HS ANGEL Administration Rosuvastatin Calcium 40 mg 01/20/20 21:00 01/20/20 20:43 Rosuvastatin 20 Mg Tab PO 40 mg HS ANGEL Administration Sodium Chloride 10 ml 01/21/20 09:00 01/21/20 09:00 Flush - Normal Saline 10 Ml Syringe IVF Not Given Q12HR ANGEL - Exam General Appearance: NAD, awake alert Eye: PERRL, anicteric sclera ENT: normocephalic atraumatic, no oropharyngeal lesions Neck: supple, symmetric, no JVD, no thyromegaly, no lymphadenopathy Heart: RRR, no gallops, no rubs, normal peripheral pulses Heart - other findings: S1, S2 Respiratory: CTAB, no wheezes, no rales, no ronchi, normal chest expansion Gastrointestinal: soft, non-tender, non-distended, normal bowel sounds, no palpable masses Extremities: no cyanosis, no clubbing, no edema Skin: normal turgor, no lesions Neurological: cranial nerve grossly intact, no new deficit Musculoskeletal: normal tone, normal strength, no muscle wasting Psychiatric: normal affect, A&O x 3 Hosp A/P (1) Pyelonephritis, acute Code(s): N10 - ACUTE PYELONEPHRITIS Status: Acute Plan: Improving, continue Cefepime, d/c Vancomycin, continue low-volume IVF's (2) Acute kidney injury superimposed on CKD Code(s): N17.9 - ACUTE KIDNEY FAILURE, UNSPECIFIED; N18.9 - CHRONIC KIDNEY DISEASE, UNSPECIFIED Status: Acute Plan: Improved, continue low-volume IVF's, avoid nephrotoxic meds and monitor renal function (3) Ureterolithiasis Code(s): N20.1 - CALCULUS OF URETER Status: Acute Plan: Plan for L nephrostomy tube placement by IR in am (4) DM II (diabetes mellitus, type II), controlled Code(s): E11.9 - TYPE 2 DIABETES MELLITUS WITHOUT COMPLICATIONS Status: Chronic (5) HTN (hypertension) Code(s): I10 - ESSENTIAL (PRIMARY) HYPERTENSION Status: Chronic Qualifiers: Hypertension type: essential hypertension Qualified Code(s): I10 - Essential (primary) hypertension - Plan continue antibiotics, bilingual social worker, out of bed/ambulate, DVT proph w/SCDs Stable currently Continue Cefepime D/C Vancomycin Continue IVF's OOB/ambulate Resume home BP regimen Hold ASA Plan for L nephrotostomy tube placement 01/21 AM lab: BMP
[2020-01-21] MEDS: Amlodipine 10 MG TAB PO SCH (21:28)
[2020-01-21] MEDS: Oxybutynin 5 MG TAB PO SCH (21:30)
[2020-01-21] MEDS: Bisoprolol Fumarate 5 MG TAB PO SCH (21:30)
[2020-01-21] MEDS: XTANDI 40 MG PO SCH (21:30)
[2020-01-21] MEDS: Famotidine 20 MG TAB PO SCH (21:30)
[2020-01-21] MEDS: rOPINIRole HCl 0.25 MG TAB PO SCH (21:31)
[2020-01-21] MEDS: Rosuvastatin 20 MG TAB PO SCH (21:31)
[2020-01-22 06:06] LABS: Anion Gap 12 mmol/L (10-20); BUN (Urea Nitrogen) 19 mg/dL (8.4-25.7); Calc. Creatinine Clearance 58 mL/min (70-130); Carbon Dioxide 24 mmol/L (23-31); Chloride 108 mmol/L (98-107); Estimated GFR-MDRD 37; Glucose 98 mg/dL (80-115); Potassium 3.9 mmol/L (3.5-5.1); Sodium 140 mmol/L (136-145)
[2020-01-22] MEDS ORDERED: Cefepime 1 GM in Sodium Chloride 0.9% 100 ML IVPB SCH (08:00)
[2020-01-22] MEDS: Losartan 25 MG TAB PO SCH (08:34)
[2020-01-22] MEDS: Cholecalciferol 1,000 UNITS (25 MCG) TAB PO SCH (08:34)
[2020-01-22] MEDS: Cyanocobalamin (Vitamin B-12) 1,000 MCG TAB PO SCH (08:35)
[2020-01-22] MEDS: Potassium Chloride 10 MEQ TAB PO SCH (08:36)
[2020-01-22] MEDS: Loratadine 10 MG TAB PO SCH (08:36)
--- NOTE | 2020-01-22 10:43 | PDOC.HOSPP ---
- Subjective Encounter Date: 01/22/20 Encounter Time: 10:35 Subjective: f/u for R pyelonephritis with negative Ucx receiving Cefepime currently. Plan for L nephrostomy tube placement today. - Objective Vital Signs & Weight: Vital Signs (12 hours) Temp Pulse Resp BP Pulse Ox 01/22/20 07:20 97.8 F 64 18 129/68 95 01/22/20 05:17 174/82 H Weight Weight 225 lb I&O: 01/21/20 01/22/20 01/23/20 06:59 06:59 06:59 Intake Total 2160 Balance 2160 Result Diagrams: 01/21/20 05:02 01/22/20 05:22 Additional Labs: Accuchecks 01/22/20 01/21/20 01/21/20 05:05 19:49 15:53 POC Glucose 91 114 H 73 01/21/20 11:09 POC Glucose 111 H Microbiology 01/19/20 15:25 Urine clean catch Urine Culture - Final NO GROWTH AT 48 HOURS Laboratory Tests 01/19/20 01/19/20 01/20/20 16:02 16:02 06:00 Hgb 9.3 L MCV 101.0 H Neutrophils % (Manual) 69 82 H Band Neuts % (Manual) 26 H 10 BUN 31 H Creatinine 2.61 H Hospitalist ROS - Medication Medications: Active Medications Generic Name Dose Route Start Last Admin Trade Name Freq PRN Reason Stop Dose Admin Hydrocodone Bitart/Acetaminophen 1 tab 01/19/20 18:11 01/20/20 19:04 Hydrocodone/Acetaminophen 10/325 Mg Tablet PO 1 tab Q4H PRN Administration Moderate to Severe Pain (6-10) Amlodipine Besylate 10 mg 01/20/20 21:00 01/21/20 21:28 Amlodipine 10 Mg Tab PO 10 mg HS ANGEL Administration Bisoprolol Fumarate 10 mg 01/20/20 21:00 01/21/20 21:30 Bisoprolol Fumarate 5 Mg Tab PO 10 mg HS ANGEL Administration Cholecalciferol 2,000 units 01/21/20 09:00 01/22/20 08:34 Cholecalciferol 1,000 Units (25 Mcg) Tab PO 2,000 units DAILY ANGEL Administration Cyanocobalamin 1,000 mcg 01/21/20 09:00 01/22/20 08:35 Cyanocobalamin (Vitamin B-12) 1,000 Mcg Tab PO 1,000 mcg DAILY ANGEL Administration Famotidine 20 mg 01/19/20 21:00 01/21/20 21:30 Famotidine 20 Mg Tab PO 20 mg QPM ANGEL Administration Sodium Chloride 1,000 mls @ 75 mls/hr 01/21/20 14:14 01/21/20 18:40 Normal Saline 0.9% IV 1,000 mls .[id number] ANGEL Administration Cefepime HCl 1 gm/ Sodium 100 mls @ 200 mls/hr 01/22/20 08:00 01/22/20 08:30 Chloride IVPB 100 mls 0800,1999 ANGEL Administration Loratadine 10 mg 01/21/20 09:00 01/22/20 08:36 Loratadine 10 Mg Tab PO 10 mg DAILY ANGEL Administration Losartan Potassium 50 mg 01/21/20 09:00 01/22/20 08:34 Losartan 25 Mg Tab PO 50 mg DAILY ANGEL Administration Ondansetron HCl 4 mg 01/19/20 20:11 01/21/20 10:56 Ondansetron Pf 4 Mg/2 Ml Vial IVP 4 mg Q6H PRN Administration Nausea/Vomiting Oxybutynin Chloride 10 mg 01/20/20 21:00 01/21/20 21:30 Oxybutynin 5 Mg Tab PO 10 mg HS ANGEL Administration Xtandi 40 Mg 0 each 01/20/20 21:00 01/21/20 21:30 PO 1 each 2100 ANGEL Administration Dulaglutide [ 0 each 01/20/20 20:30 01/20/20 19:06 Trulicity] 0.75 Mg/0 SC 1 each .5 Ml Pen.Injctr [email or web address] ANGEL Administration Potassium Chloride 10 meq 01/21/20 08:00 01/22/20 08:36 Potassium Chloride 10 Meq Tab PO 10 meq QAM-WM ANGEL Administration Ropinirole HCl 0.25 mg 01/20/20 21:00 01/21/20 21:31 Ropinirole Hcl 0.25 Mg Tab PO 0.25 mg HS ANGEL Administration Rosuvastatin Calcium 40 mg 01/20/20 21:00 01/21/20 21:31 Rosuvastatin 20 Mg Tab PO 40 mg HS ANGEL Administration Sodium Chloride 10 ml 01/21/20 09:00 01/22/20 08:45 Flush - Normal Saline 10 Ml Syringe IVF Not Given Q12HR ANGEL - Exam General Appearance: NAD, awake alert Eye: PERRL, anicteric sclera ENT: normocephalic atraumatic, no oropharyngeal lesions Neck: supple, symmetric, no JVD, no thyromegaly Heart: RRR, no murmur, no gallops, no rubs, normal peripheral pulses Heart - other findings: S1, S2 Respiratory: CTAB, no wheezes, no rales, no ronchi, normal chest expansion Gastrointestinal: soft, non-tender, non-distended, normal bowel sounds, no palpable masses Extremities: no cyanosis, no clubbing, no edema Skin: normal turgor, no lesions Neurological: cranial nerve grossly intact, no new deficit Musculoskeletal: normal tone, normal strength, no muscle wasting Psychiatric: normal affect, A&O x 3 Hosp A/P (1) Pyelonephritis, acute Code(s): N10 - ACUTE PYELONEPHRITIS Status: Acute Plan: Continue Cefepime, resolving (2) Acute kidney injury superimposed on CKD Code(s): N17.9 - ACUTE KIDNEY FAILURE, UNSPECIFIED; N18.9 - CHRONIC KIDNEY DISEASE, UNSPECIFIED Status: Acute Plan: Improved, continue IVF's (3) Ureterolithiasis Code(s): N20.1 - CALCULUS OF URETER Status: Acute Plan: Plan for L nephrostomy tube placement today (4) DM II (diabetes mellitus, type II), controlled Code(s): E11.9 - TYPE 2 DIABETES MELLITUS WITHOUT COMPLICATIONS Status: Chronic (5) HTN (hypertension) Code(s): I10 - ESSENTIAL (PRIMARY) HYPERTENSION Status: Chronic Qualifiers: Hypertension type: essential hypertension Qualified Code(s): I10 - Essential (primary) hypertension - Plan plan discussed w/ family, continue antibiotics, out of bed/ambulate, DVT proph w/SCDs Stable currently Continue Cefepime Continue IVF's OOB/ambulate Resume home BP regimen Hold ASA Plan for L nephrotostomy tube placement 01/21 AM lab: BMP Likely home in am
[2020-01-22] MEDS ORDERED: Iopamidol 300 61% 100 ML VIAL FS ONE (11:08)
[2020-01-22] MEDS ORDERED: Fentanyl 100 MCG/2 ML VIAL ONE (12:49)
[2020-01-22] MEDS ORDERED: Midazolam HCl 2 mg/2 ml Vial ONE (12:49)
[2020-01-22] MEDS ORDERED: Sodium Chloride 0.9% 10 ML ONE (12:49)
--- NOTE | 2020-01-22 14:22 | SPC ---
Left percutaneous nephrostomy catheter placement fluoroscopic guided Conscious sedation: At least 30 minutes were spent with the patient for conscious sedation. HISTORY: Obstructing left ureteral stone. FINDINGS: After explaining the procedure and obtaining informed consent, 80 cc Isovue contrast was gi marcelina IV for opacification of the urinary system. With patient prone, sterile technique, buffered local anesthesia, conscious sedation, fluoroscopic gu idance, and a left posterolateral approach were used to carefully advance a 21-gauge AccuStick needle to the distended left renal collecting system. Small amount of contrast was injected to better opacify the dilated renal collecting system. A new, nearby access site was used along with a 22-gauge Chiba needle to access a lower pole posterio r calyx. AccuStick technique was then used to place a 0.035 J-wire. Tract was dilated to 8 Samoan, and an 8 Fr ench locking loop catheter was carefully placed into the dilated renal collecting system. Catheter was secured externally with 0 silk suture. Contrast was injected, showing persistent high-grade dista l left ureteral obstruction. She tolerated the procedure well and was returned in unchanged condition. IMPRESSION : Technically successful left percutaneous nephrostomy catheter placement. High-grade distal left urete ral obstruction.
--- NOTE | 2020-01-22 16:12 | PRG ---
DATE OF SERVICE: 01/22/2020 SUBJECTIVE: No acute events overnight. He denies fevers, nausea, flank pain, abdominal pain. He is urinating normally with very minimal blood at this point. OBJECTIVE: VITAL SIGNS: Afebrile. Vitals stable. GENERAL: No acute distress, conversant, unlabored breathing. Symmetric chest expansion. HEART: Regular rate and rhythm. ABDOMEN: Soft, nontender, nondistended. Left nephrostomy tube in good position, draining mildly hematuric urine. SKIN: Warm and dry. EXTREMITIES: No peripheral edema. LABORATORY DATA: Reviewed. Creatinine 1.84, hemoglobin 8.3. Urine culture, no growth. IMAGING STUDIES: I personally reviewed the images from his nephrostomy tube placement. It appears that a lower pole nephrostomy tube was performed with the curl in the upper pole. ASSESSMENT AND PLAN: Pyelonephritis, left hydronephrosis status post nephrostomy tube today. We discussed precautions for when he needs to contact me or seek medical attention for the nephrostomy tube or other issues. We also discussed how to take care of the nephrostomy tube. He will resume Levaquin and hydrocodone at home. We have arranged left antegrade ureteroscopy for next Tuesday. Thirty minutes spent in patient care. Job ID: [id number]
[2020-01-22 16:27] VITALS: BP 122/62; TEMP 98.4
[2020-01-22] MEDS: HYDROcodone/Acetaminophen 10/325 mg Tablet PO PRN (16:46)
--- NOTE | 2020-01-23 04:15 | DIS ---
DATE OF ADMISSION: 01/19/2020 DATE OF DISCHARGE: 01/22/2020 DISCHARGE DIAGNOSES: 1. Right pyelonephritis, resolving. 2. Acute kidney injury on chronic kidney disease, improved. 3. Left ureterolithiasis with left hydronephrosis, status post left nephrostomy tube placement on 01/22/2020. 4. Diabetes mellitus type 2, stable. 5. Hypertension, stable. CONSULTATIONS: Dino Mckenzie MD with Urology Service. Interventional Radiology Service. PERTINENT LABORATORY AND X-RAY FINDINGS: Creatinine ranged between 1.84 to 2.61. Estimated GFR ranged between 25 to 37. CBC showed a hemoglobin ranged between 8.3 to 9.3. Urine culture dated 01/19/2020 showed no growth at [address] of the abdomen and pelvis dated 01/19/2020 showed right perinephric and periureteral inflammatory process. Partial obstruction of the left UVJ with calculus measuring 4 mm with associated left hydronephrosis. HOSPITAL COURSE: The patient was admitted to the medical floor after initially presenting with right flank pain and chills, status post recent attempt at laser lithotripsy due to a distal left ureterolithiasis. The patient was placed on broad-spectrum IV antibiotic therapy with cefepime and vancomycin with urine culture negative and not consistent with dominant organism. The patient received IV fluids and general supportive management stabilizing in approximately 36 hours after admission. The patient was noted with concomitant acute kidney injury, resolving with IV fluid hydration. The patient was evaluated by the Urology Service with recommendations to place a left-sided nephrostomy tube for decompression in preparation for a second attempt at removal of the distal left ureteral stone. Overall, the patient did remain clinically stable during the hospital course. The patient underwent successful left nephrostomy tube placement on 01/22/2020 without complication. I have examined the patient at the time of discharge and discussed followup instructions. The patient verbalized understanding and agreement, ready for discharge on 01/22/2020. DISCHARGE MEDICATIONS: 1. Amlodipine 10 mg p.o. at bedtime. 2. Bisoprolol fumarate 10 mg p.o. at bedtime. 3. Cinnamon bark 1000 mg p.o. daily. 4. Losartan 50 mg p.o. daily. 5. Cranberry extract 425 mg p.o. daily. 6. Enteric-coated aspirin 81 mg p.o. daily. 7. Crestor 40 mg p.o. at bedtime. 8. mEq p.o. daily. 9. Lupron 30 mg IM q.120 days. 10. Oxybutynin 10 mg p.o. at bedtime. 11. Ropinirole 0.25 mg p.o. at bedtime. 12. Trulicity 0.75 subcutaneously weekly. 13. Vitamin B12 1000 mcg p.o. daily. 14. Vitamin D3 2000 units p.o. daily. 15. Xtandi 160 mg. 16. Allopurinol 300 mg p.o. daily. FOLLOWUP: The patient will follow up with his primary care provider, Dr. Forest Osborne. The patient will follow up with Dr. Dino Mckenzie with Urology Service. CONDITION ON DISCHARGE: Stable. ACTIVITY: Ad-prachi. DIET: ADA and heart healthy. CODE STATUS: Full. DISPOSITION: To home, 01/22/2020. TIME SPENT: Total time preparing and coordinating discharge, 33 minutes. Job ID: [id number]
--- NOTE | 2020-01-23 16:04 | PQF ---
CLINICAL DOCUMENTATION CLARIFICATION FORM: Dear Dr. Santo MANCIA Date / Time: 01/23/20 7866 Please exercise your independent, professional judgment in responding to the clarification form. Clinical indicators are provided on the bottom of this form for your review. Please check appropriate box(es): [ ] Pyelonephritis due/ to lithotripsy [ x ] Pyelonephritis Not due/to lithotripsy [ ] Other diagnosis [ ] Unable to determine In addition, please specify: Present on Admission (POA): [ x ] Yes [ ] No [ ] Unable to determine For continuity of documentation, please document condition throughout progress notes and discharge summary. Thank You. To be completed by CDI/Coding staff for physician review: CLINICAL INDICATORS - SIGNS / SYMPTOMS / LABS / RESULTS AND LOCATION IN EMR 01/18 ED REPORT: PATIENT HAD LASER LITHOTRIPSY PERFORMED BY DR. BECKHAM YESTERDAY FOR LARGE BLADDER STONE. PATIENT REPORTS THAT HE TYPICALLY WOULD HAVE PAIN ON HIS LEFT FLANK, HOWEVER, REPORTS PAIN ON HIS RIGHT SIDE TODAY. PATIENT CALLED HIS UROLOGIST WHO SENT HIM TO ED. FINAL ED PHYSICIAN DX: PYELONEPHRITIS, RANDAL 01/20 PN ([facility]) RIGHT PYELONEPHRITIS, LEFT DISTAL URETERAL STONE WITH LEFT URETERAL ORIFICE STRICTURE WITH LEFT HYDRONEPHROSIS, FAILED RETROGRADE URETEROSCOPY. RISK FACTORS / RESULTS AND LOCATION IN EMR DX: RIGHT PYELONEPHRITIS, LEFT URETEROLITHIASIS, S/P LASER LITHOTRIPSY ( [facility]INO/H&P) 01/19 TREATMENTS / RESULTS AND LOCATION IN EMR UROLOGY CONSULT (01/19/[facility]) THANK YOU! CDS Signature: JOAQUIN STONE RN Phone #: [phone] Date: 01/23/2020 This is a permanent part of the Medical Record [facility]
== END 2020-01-22 18:05 | disposition home or self-care (01) | DRG 690 ==
LOC: ERS 14:35 → T4-B 17:59
PROVIDERS: ADMIT Family Medicine; ATTEND Family Medicine
PROC: 0T9430Z Drainage of Left Kidney Pelvis with Drainage Device, Percutaneous Approach (ICD-10-PCS; principal; 2020-01-22)
DX: N13.6 Pyonephrosis (principal); N17.9 Acute kidney failure, unspecified; E78.5 Hyperlipidemia, unspecified; N18.3 Chronic kidney disease, stage 3 (moderate); E11.22 Type 2 diabetes mellitus with diabetic chronic kidney disease; I12.9 Hypertensive chronic kidney disease with stage 1 through stage 4 chronic kidney disease, or unspecified chronic kidney disease; Z88.0 Allergy status to penicillin; Z88.2 Allergy status to sulfonamides; Z88.6 Allergy status to analgesic agent; Z79.82 Long term (current) use of aspirin; Z79.899 Other long term (current) drug therapy
CPT/HCPCS: 36415; 36416; 50430; 50432; 74176; 74420; 80048; 80053; 81003; 81015; 85007; 85025; 85027; 85610; 85730; 87086; 87635; 93005; 96365; 96367; C1729; J0692; J1885; J1956; J2175; J2250; J2405; J2704; J3010; J3370; J3490; U0003

== ENCOUNTER 2020-01-24 07:23 | Outpatient (CLI) | payer BC, OTHER, MEDICARE ==
[2020-01-24 17:48] LABS: SARS-CoV-2 MS2 Positive; SARS-CoV-2 N Gene Negative; SARS-CoV-2 S Gene Negative; SARS-CoV-2 by NAA Not Detected (NotDetected); SARS-CoV-2 orf1ab Negative
== END 2020-01-24 07:24 | disposition home or self-care (01) ==
LOC: LABBT 07:23
PROVIDERS: ATTEND Urology
DX: N21.0 Calculus in bladder (principal); N20.1 Calculus of ureter; R31.0 Gross hematuria; R30.0 Dysuria; Z20.828 Contact with and (suspected) exposure to other viral communicable diseases
CPT/HCPCS: 87635; U0003

== ENCOUNTER 2020-01-29 11:03 | Observation (INO) | payer BC, OTHER, MEDICARE ==
[2020-01-24 15:16] VITALS: BMI 34.2
[2020-01-29] MEDS ORDERED: Levofloxacin 500 mg/D5W 100 ml Premix Bag ONE (11:23)
[2020-01-29] MEDS ORDERED: Rocuronium Bromide 10 MG/ML (10ML VIAL) ONE (11:53)
[2020-01-29] MEDS ORDERED: PROPOFOL 200 MG/20 ML VIAL ONE (11:53)
[2020-01-29] MEDS ORDERED: Ondansetron PF 4 MG/2 ML Vial ONE (11:53)
[2020-01-29] MEDS ORDERED: Lidocaine 1% PF 5 ML VIAL ONE (11:53)
[2020-01-29] MEDS ORDERED: Iothalamate Meglumine 60% 50 ML VIAL FS ONE (12:30)
[2020-01-29] MEDS ORDERED: Lidocaine 1% (PF) 30 ML VIAL ONE (12:42)
[2020-01-29] MEDS ORDERED: Fentanyl 100 MCG/2 ML VIAL ONE ×3 (12:42→16:25)
[2020-01-29] MEDS ORDERED: Bupivacaine PF 0.5% 30 ML VIAL ONE (12:42)
--- NOTE | 2020-01-29 15:18 | RAD ---
Intraoperative imagin01/29/2020 HISTORY: Nephrostomy FINDINGS: 2 coned down images of the right abdomen demonstrate catheter tubing curling over the pubic symphysis and extending along the course of the right ureter. There is catheter tubing curling in right upper quadrant as well as a wire extending along the course of the right ureteral catheter. IMPRESSION: Intraoperative imaging as above.
[2020-01-29] MEDS ORDERED: Meperidine HCl/PF 25 MG/ML VIAL ONE (15:40)
[2020-01-29] MEDS ORDERED: hydrALAZINE 20 MG/ML VIAL SLOW IVP PRN (17:44)
[2020-01-29] MEDS ORDERED: diphenhydrAMINE 50 MG/ML VIAL IVP PRN (17:44)
[2020-01-29] MEDS ORDERED: Hyoscyamine Sulfate SL 0.125 mg Tablet SL PRN (17:44)
[2020-01-29] MEDS ORDERED: Ketorolac Tromethamine 30 MG/ML VIAL IVP PRN (17:44)
[2020-01-29] MEDS ORDERED: HYDROcodone/Acetaminophen 10/325 mg Tablet PO PRN (17:44)
[2020-01-29] MEDS ORDERED: Dextrose 5% in Water 1,000 ML IV PRN (17:44)
[2020-01-29] MEDS ORDERED: HumaLOG 300 UNITS/3 ML VIAL SC PRN (17:44)
[2020-01-29] MEDS ORDERED: Ondansetron PF 4 MG/2 ML Vial IVP PRN (17:44)
[2020-01-29] MEDS ORDERED: Dextrose 50% Abboject 50 ML SYRINGE SLOW IVP PRN (17:44)
[2020-01-29] MEDS ORDERED: Morphine 4 MG/ML VIAL SLOW IVP PRN (17:44)
[2020-01-29] MEDS ORDERED: Zolpidem Tartrate 5 MG TAB PO PRN (17:44)
[2020-01-29] MEDS ORDERED: Rosuvastatin 20 MG TAB PO SCH (21:00)
[2020-01-29] MEDS ORDERED: Bisoprolol Fumarate 5 MG TAB PO SCH (21:00)
[2020-01-29] MEDS ORDERED: Amlodipine 10 MG TAB PO SCH (21:00)
[2020-01-29] MEDS ORDERED: rOPINIRole HCl 0.25 MG TAB PO SCH (21:00)
[2020-01-29] MEDS ORDERED: Oxybutynin 5 MG TAB PO SCH (21:00)
[2020-01-29] MEDS: Docusate 100 MG CAP PO SCH (21:24)
[2020-01-29] MEDS: Sodium Chloride 0.9% 1,000 ML IV SCH (21:39)
--- NOTE | 2020-01-29 22:05 | OP ---
DATE OF PROCEDURE: 01/29/2020 PREOPERATIVE DIAGNOSIS: Distal left ureteral stone with ureteral stricture. POSTOPERATIVE DIAGNOSIS: Distal left ureteral stone with ureteral stricture. PROCEDURES PERFORMED: Left nephrostogram, dilation of nephrostomy tract, antegrade ureteroscopy, laser lithotripsy, laser incision of ureteral stricture, balloon dilation of ureteral stricture, and placement of 7 x 26 double-J ureteral stent. ANESTHESIA: General. COMPLICATIONS: None. BLOOD LOSS: 100 mL. SPECIMEN: None. DESCRIPTION OF PROCEDURE: After informed consent, the patient was taken to the operating room. Anesthesia was established on his stretcher. His artificial sphincter was locked open and a 14-Ecuadorean catheter placed without issue with 10 mL instilled in the balloon and clear urine draining. He was then transferred over to the bed and positioned in the prone position with all pressure points padded. Preoperative antibiotics were administered. Time-out was performed showing the correct patient, site, and procedure. I began by performing an antegrade nephrostogram showing good filling of the renal pelvis with contrast traversing down to the distal ureter. I was then able to pass a ZIPwire through the nephrostomy tube and guided this after several attempts into the ureter and down to the bladder, and 8/10 catheter was passed over the wire after removing the nephrostomy tube and guided into the mid ureter. This was used to place a second Amplatz wire. The 8/10 was removed. A 1.5 cm incision was made between the two wires on his flank after injecting 10 mL of 0.5% Marcaine. Serial dilators were used from 10-Ecuadorean up to 26-Ecuadorean. I then passed the 26-Ecuadorean sheath over the dilator with the tip of the sheath positioned in the renal pelvis. I then passed the flexible ureteroscope over the Amplatz wire and down the ureter to the distal ureter. The scope was then passed down to the ureteral orifice, where a stone was found lodged. A 273 micron laser fiber was used to dust this stone into very small pieces. There was only a pinpoint opening of the ureter at this point, which I opened with the laser directing the laser medially. I was unable to easily pass the ureteroscope into the bladder. The Amplatz wire was then replaced and the scope withdrawn. A ureteral balloon dilator 17-Ecuadorean was passed over this and positioned traversing the ureteral orifice. This was inflated and left for 1 minute before deflating and removing. I then passed a 7 x 26 double-J ureteral stent over the wire and positioned this with a curl in the kidney and curl in the bladder under fluoroscopic guidance. I then removed the second safety wire and the access sheath. The incision in his left flank was closed in an interrupted fashion with chromic suture. This was dressed with gauze and tape. He was then awoken from anesthesia, transferred back to his hospital bed and taken to PACU in stable condition, where he will be admitted overnight. Job ID: [id number]
[2020-01-30] MEDS: Sodium Chloride 0.9% 1,000 ML IV SCH (02:41)
[2020-01-30 05:33] LABS: #Eosinphils 0.1 thou/uL (0.0-0.7); #Lymphocytes 0.9 thou/uL (1.20-3.40); #Monocytes 0.7 thou/uL (0.11-0.59); %Basophils 0.2 % (0.0-1.0); %Eosinophils 1.3 % (0.0-10.0); %Lymphocytes 8.4 % (21.0-51.0); %Monocytes 6.6 % (0.0-10.0); %Neutrophils 83.5 % (42.0-75.0); Hemoglobin 9.1 g/dL (14.0-18.0); Mean Corpuscular HGB CONC 33.3 g/dL (32.0-36.0); Mean Corpuscular Hemoglobin 33.2 pg (27.0-31.0); Mean Corpuscular Volume 99.5 fL (78.0-98.0); Mean Platelet Volume 6.9 fL (7.4-10.4); Platelet Count 245 thou/uL (130-400); RBC Distribution Width 14.4 % (11.5-14.5); Red Blood Cell (RBC) Count 2.74 mill/uL (4.70-6.10); White Blood Cell (WBC) Count 10.8 thou/uL (4.8-10.8)
[2020-01-30 05:58] LABS: Anion Gap 13 mmol/L (10-20); BUN (Urea Nitrogen) 14 mg/dL (8.4-25.7); Calc. Creatinine Clearance 75 mL/min (70-130); Calcium 8.9 mg/dL (7.8-10.44); Carbon Dioxide 28 mmol/L (23-31); Chloride 102 mmol/L (98-107); Estimated GFR-MDRD 50; Glucose 111 mg/dL (80-115); Potassium 4.5 mmol/L (3.5-5.1); Sodium 138 mmol/L (136-145)
[2020-01-30] MEDS: Docusate 100 MG CAP PO SCH (08:04)
[2020-01-30] MEDS ORDERED: Potassium Chloride 10 MEQ TAB PO SCH ×3 (09:00→10:00)
[2020-01-30] MEDS ORDERED: Losartan 25 MG TAB PO SCH (09:00)
[2020-01-30] MEDS ORDERED: Cholecalciferol 1,000 UNITS (25 MCG) TAB PO SCH (09:00)
[2020-01-30] MEDS ORDERED: ENZALUTAMIDE 160 MG PO SCH (09:00)
[2020-01-30] MEDS ORDERED: Loratadine 10 MG TAB PO SCH (09:00)
[2020-01-30] MEDS ORDERED: Allopurinol 300 MG TAB PO SCH (09:00)
[2020-01-30] MEDS ORDERED: Cyanocobalamin (Vitamin B-12) 1,000 MCG TAB PO SCH (09:00)
[2020-01-30] MEDS ORDERED: CINNAMON BARK 500MG PO SCH ×2 (09:00)
[2020-01-30] MEDS ORDERED: CRANBERRY EXTRACT 425 MG PO SCH (09:00)
[2020-01-30] MEDS ORDERED: Potassium Chloride 20 MEQ TAB PO SCH (09:00)
[2020-01-30] MEDS ORDERED: Tamsulosin HCl 0.4 MG CAP PO SCH (09:00)
[2020-01-30 11:05] VITALS: BP 128/67; TEMP 98.2
[2020-01-31] MEDS ORDERED: Potassium Chloride 10 MEQ TAB PO SCH (09:00)
[2020-02-03] MEDS ORDERED: DULAGLUTIDE 0.75 UNIT SC SCH (09:00)
== END 2020-01-30 12:50 | disposition home or self-care (01) ==
LOC: SDC 11:03 → SJJU 12:47
PROVIDERS: ADMIT Urology; ATTEND Urology
PROC: 0TC78ZZ Extirpation of Matter from Left Ureter, Via Natural or Artificial Opening Endoscopic (ICD-10-PCS; principal; 2020-01-29)
PROC: 0T778DZ Dilation of Left Ureter with Intraluminal Device, Via Natural or Artificial Opening Endoscopic (ICD-10-PCS; 2020-01-29)
DX: N20.1 Calculus of ureter (principal); N13.5 Crossing vessel and stricture of ureter without hydronephrosis; N21.0 Calculus in bladder; E78.00 Pure hypercholesterolemia, unspecified; E11.9 Type 2 diabetes mellitus without complications; I10 Essential (primary) hypertension; K76.89 Other specified diseases of liver; Z79.82 Long term (current) use of aspirin; Z79.84 Long term (current) use of oral hypoglycemic drugs; Z79.899 Other long term (current) drug therapy; Z85.46 Personal history of malignant neoplasm of prostate; Z88.0 Allergy status to penicillin; Z88.2 Allergy status to sulfonamides; Z88.5 Allergy status to narcotic agent
CPT/HCPCS: 36415; 36416; 74018; 76000; 80048; 85025; G0378; J1956; J2001; J2175; J2405; J2704; J3010; S0020